=== PATIENT | female | born 1980 | race Caucasian/White ===

== ENCOUNTER 2016-10-26 09:34 | Emergency (ER) | payer OTHER ==
[2016-10-26] MEDS ORDERED: NORMAL SALINE 10 ML SYRINGE FLUSH IVP PRN (09:54)
[2016-10-26] MEDS ORDERED: Sodium Chloride 0.9% 1,000 ML PRIMARY IV ONE (09:54)
[2016-10-26] MEDS ORDERED: diphenhydrAMINE 50 MG/1 ML VIAL IVP ONE (09:54)
[2016-10-26] MEDS ORDERED: Metoclopramide Inj 10 MG/2 ML VIAL IVP ONE (09:54)
[2016-10-26] MEDS ORDERED: KETOROLAC 30 MG/1 ML VIAL IVP ONE (09:54)
[2016-10-26 10:00] VITALS: RESP 20; TEMP 96.8
--- NOTE | 2016-10-27 03:34 | PDOC ---
Headache HPI - General Chief Complaint: Headache Stated Complaint: Migraine Date Seen by Provider: 10/26/16 Time Seen by Provider: 09:47 Source: POSITIVE: Patient Exam Limitations: POSITIVE: No limitations Nurse's Notes Reviewed & Considered: Yes - History of Present Illness Initial Comments: The patient is a 36 year old female. She states that since around 8 PM last night she's had a left-sided headache. Patient states she has a long-standing history of migraine headaches which usually occur on the left side. He states she gets 3-6 such headaches a month. She has been evaluated by a neurologist and has had normal CT scans and MRIs. She has photophobia and vomiting. Present episode a headaches is identical to previous episodes. She last took Imitrex at 7:30 AM, but still has headache. 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 DENIES: Fever, Chills, Sweating, Problems with Vision, Visual Disturb Preceding, [place] Preceding, Typical of Prior Aura(s), Neck Pain, Stiffness, Speech Problems, Weakness, Trouble Walking, Tingling, Numbness, Dizziness, Lightheadedness, Other Exacerbated by: REPORTS: Light Any Prior Injuries Related to Current Complaint?: No - Patient Home Medications Home Medications: Home Medications Ferrous Gluconate 324 mg PO QD #30 tab 01/08/15 Potassium Chloride [K-Tab Er] 10 meq PO ONCE PRN 0 Days 11/12/15 Bupropion HCl [Wellbutrin] 1 tab PO QD #30 tab 12/20/15 Duloxetine HCl [Cymbalta] 1 cap PO BID #30 cap 12/20/15 Lamotrigine [Lamictal (Tyler)] 1 each PO BID tab 12/20/15 Metformin HCl [Metformin Hcl Er] 500 mg PO BID #60 12/20/15 Fenofibrate Nanocrystallized [Tricor] 48 mg PO DAILY #30 tab 01/10/16 Furosemide 0.5 tab PO ONCE #30 tab 04/28/16 Dexlansoprazole [Dexilant] 60 mg PO DAILY #30 cap 05/08/16 Dextromethorphan HBr/Chlor-Mal [Robitussin Long-Acting Liq] 5 ml PO BID PRN #1 bottle 06/07/16 Promethazine HCl/Codeine [Promethazine-Codeine Syrup] 5 ml PO Q4-6HRSPRN PRN # 120 ml 06/08/16 Simvastatin 1 tab PO QHS #30 tab 06/29/16 Estradiol 1 tab ORAL QD #30 tab 07/28/16 Levothyroxine Sodium 1 tab PO QOD #15 tab 07/28/16 Levothyroxine Sodium 1 tab PO QOD #15 tab 07/28/16 Hydrocodone/Acetaminophen [Hydrocodon-Acetaminophn 10-325] 1 tab PO Q4-6H #120 tab 10/10/16 Sumatriptan Succinate 100 mg PO ONCE #9 tab 10/16/16 Acetaminophen [Tylenol] 500 mg PO Q4H 10/26/16 - Patient Allergies Allergies/Adverse Reactions: Allergies Allergy/AdvReac Type Severity Reaction Status Date / Time latex Allergy Intermediate ITCHING Verified 10/26/16 09:48 FRESH FRUITS AdvReac Intermediate VARIABLE Uncoded 10/26/16 09:48 FRESH VEGETABLES AdvReac Intermediate VARIES Uncoded 10/26/16 09:48 Past Medical History - heen HEENT History: Denies History Cardiovascular History: Denies History Respiratory History: Shortness of Breath, Snoring Additional Respiratory History: smoker Gastrointestinal History: GERD Genitourinary History: Denies History Endocrine History: Hypothyroidism Musculoskeletal History: Back Pain, Other (please comment) Additional Musculoskeletal History: Chronic pain Neurological History: Migraines Blood Disorders: Denies History Psychiatric History: Depression History of Sexually Transmitted Diseases: No Cancer History: Denies History In Past Year Been Physically Harmed or Verbally Threatened: No History of MDRO: Unknown History of Other Communicable Diseases: No Tobacco Use: Current Every Day Smoker Alcohol Use: None Substance Use Type: None Previous Surgical History: Yes Type / Date of Surgery: tonsilsC section x 3lap discoverybreast reductionhyster/ oppherectomy Anesthesia Reactions: No Malignant Hyperthermia: No Significant Family History: No pertinent family hx Past Medical History Reviewed: Reviewed - No Changes ROS - Limitations ROS Limitations: No Limitations Constitution: REPORTS: Denies Symptoms Cardiovascular: REPORTS: Denies Cardiac Symptoms Respiratory: REPORTS: Denies Resp Symptoms Neurological: REPORTS: Headache Gastrointestinal: REPORTS: Nausea, Vomitting Endocrine: REPORTS: Denies Symptoms Musculoskeletal: REPORTS: Denies MS Symptoms Genitourinary: REPORTS: Denies Symptoms Eyes: REPORTS: Denies Symptoms ENT: REPORTS: Denies Symptoms Skin: REPORTS: Denies Skin Symptoms Lympathic: REPORTS: Denies Lympathic Symptoms Immunologic: POSITIVE: Denies Symptoms Psychiatric: POSITIVE: Denies Psych Symptoms Headache Exam - General Appearance General Appearance: POSITIVE: Alert, Cooperative, No Evidence of Trauma, Moderate Distress - HEENT Head / Face: POSITIVE: Atraumatic, Normal Inspection, No Facial Swelling Eyes: POSITIVE: Inspection Normal, PERRL, EOM's Intact, Eyelids Uninjured, Conjunctivae Uninjured, No Nystagmus, No Globe Trauma, Sclera Normal, Normal Corneal Inspection, Normal Fundoscopic Exam, Ant. Chamber Nml Inspect., Posterior Segments Normal, No Papilledema Ears: POSITIVE: Ears Normal Inspection, TM Normal Inspection, Auricle Normal, External Canal Normal Nose: POSITIVE: Inspection Normal, No Apparent Trauma, Nares Normal, No CSF Leak Oropharynx: POSITIVE: External Inspection Nml, Pharynx Inspect. Nml, Airway Intact, Voice Normal, Moist Mucous Membranes, No Oral Injury, Lips Normal, Gums Normal, No Drooling, No Thrush, Normal Gag Reflex Dental: POSITIVE: No Dental Injury - Pupil Size Pupil Size: 4 mm: Bilateral (PERRLA) - Neck Neck: POSITIVE: Normal Inspection, Supple - Respiratory / CVS Respiratory / CVS: POSITIVE: Chest Non-Tender, No Respiratory Distress, Heart Sounds Normal, Regular Rate/Rhythm, Breath Sounds Normal Peripheral Pulses: Radial (R): 2+, Radial (L): 2+ - Abdomen Abdomen: Soft: (All Quadrants), Normal Bowel Sounds: (All Quadrants), Denies Tenderness: (All Quadrants), No Splenomegaly: (All Quadrants), No Hepatomegaly: (All Quadrants), No Guarding: (All Quadrants), No Rebound: (All Quadrants), No Palpable Pulse: (All Quadrants), No Palpabale Mass: (All Quadrants), No Distention: (All Quadrants), No Rigidity: (All Quadrants) - Skin Skin: POSITIVE: Intact, Normal Palpation - Extremities Extremity: Non-Tender: (All Extremities), Normal ROM: (All Extremities), Normal Inspection: (All Extremities) - Neuro / Psych Higher Functions: POSITIVE: Alert, Oriented x3, Normal Speech, Mood Appropriate , Affect Appropriate Cranial Nerves: POSITIVE: Normal As Tested, No Evidence of Acute CVA Cerebellar: POSITIVE: Normal As Tested Sensorimotor: POSITIVE: No Motor Deficits, No Sensory Deficits, Reflexes Normal Images - Head Head: 1 - Area of headache 2 - Area of headache Headache Progress - Patient's Progress Pain Medication Addressed: POSITIVE: Yes (Patient received a liter of normal saline along with 30 mg of Toradol, 10 mg of Reglan and 50 mg of diphenhydramine with near complete relief of headache) School/Work Release Addressed: POSITIVE: Not Applicable Re-Examine Time:: 11:10 Re-Examine Comment: Headache almost completely resolved Status: POSITIVE: Improved, Re-Examined, Pain Almost Comp Relieved - Consult Counseled: POSITIVE: Patient, RE: DX, RE: Need for F/U Patient Care Time - Estimated PCT Patient Care Time (In Minutes): 38 Vital Signs - VS Reviewed Vital Signs Reviewed: Yes Discharge Clinical Impression: Migraine Discharge Disposition: Discharged to Home Condition: Good Patient Instructions Given at Discharge: Migraine Headache (ED) Additional Instructions: Rest today. Continue your present migraine medications. Follow-up with your primary care provider. Return here anytime if condition worsens in any way. Follow Up With: GRAHAM CERVANTES [Primary Care Provider] - (Instructions as above. Follow-up with your primary care provider. Return here anytime if condition worsens in any way.)
== END 2016-10-26 11:32 | disposition home or self-care (01) ==
LOC: ER 09:34
DX: G43.909 Migraine, unspecified, not intractable, without status migrainosus (principal); H53.142 Visual discomfort, left eye; R11.2 Nausea with vomiting, unspecified; Z72.0 Tobacco use
CPT/HCPCS: 96361; 96374; 96375; 99282; 99283; J1200; J1885; J2765; J7030

== ENCOUNTER → 2016-11-07 | Outpatient (CLI) | payer OTHER ==
[2016-11-07 12:52] LABS: HEMATOCRIT 43.3 % (37.0-47.0); MEAN CORPUSCULAR HEMOGLOBIN 30.7 PG (27-31); MEAN CORPUSCULAR HGB CONC 34.6 g/dL (33-37); MEAN PLATELET VOLUME 10.3 FL (7.4-12.2); RDW COEFFICIENT OF VARIATION 13.7 % (11.5-14.5); RED BLOOD COUNT 4.89 10^6/uL (4.20-5.40); WHITE BLOOD COUNT 10.49 10^3/uL (4.8-10.8)
[2016-11-07 13:13] LABS: ASPARTATE AMINO TRANSFERASE 23 IU/L (8-39); BILIRUBIN,TOTAL 0.4 mg/dL (0.3-1.2); BLOOD UREA NITROGEN 8 mg/dL (7-22); BUN/CREATININE RATIO 8.88 (6-20); CALCIUM 10.1 mg/dL (8.7-10.7); CHLORIDE 101 meq/L (98-112); CREATININE 0.9 mg/dL (0.50-1.20); EST GLOMERULAR FILTRATION > 60 (>60 ml/min/1.73m(2)); GLUCOSE 90 mg/dL (78-110); POTASSIUM 4.2 meq/L (3.8-5.2); SODIUM 140 meq/L (135-145); TOTAL PROTEIN 7.5 g/dL (6.1-8.0)
[2016-11-07 13:17] LABS: HEMOGLOBIN A1C 5.82 % (4.2-6.0); MEAN BLOOD GLUCOSE (CALC) 107.806 mg/dL
[2016-11-07 13:31] LABS: LDL CHOLESTEROL,CALCULATED 107.8 mg/dL
[2016-11-07 13:49] LABS: FREE T4 (FREE THYROXINE) 1.01 ng/dL (0.93-1.71)
[2016-11-08 11:36] LABS: PERCENT IRON SATURATION 20.2 % (14-50)
== END ==
LOC: MOB LAB 11:48
PROVIDERS: ATTEND Family Medicine
DX: E78.5 Hyperlipidemia, unspecified (principal); E03.9 Hypothyroidism, unspecified; R53.83 Other fatigue; F17.200 Nicotine dependence, unspecified, uncomplicated; E88.81 Metabolic syndrome and other insulin resistance
CPT/HCPCS: 36415; 80053; 80061; 82607; 82728; 83036; 83540; 83550; 84439; 84443; 85027